=== PATIENT | female | born 1970 | race Caucasian/White ===

== ENCOUNTER 2022-06-18 14:10 | Outpatient (CLI) | payer BC, SELFPAY ==
--- NOTE | 2022-06-18 14:00 | CRLHL7_ITS ---
For Patients: As a result of the Century Cures Act, medical imaging exams and procedure reports are released immediately into your electronic medical record. You may view this report before your referring provider. If you have questions, please contact your health care provider. INDICATION: Menorrhagia. TECHNIQUE: Transabdominal and transvaginal pelvic ultrasound. FINDINGS: The uterus is enlarged, measuring 14.2 x 7.6 x 11.6 cm. The endometrial stripe is not at all well seen. There are least 3 discrete myometrial masses. There is an upper anterior intramural mass measuring 4.0 x 3.1 x 5.7 cm likely a fibroid. There is a smaller posterior upper fundal intramural mass measuring 3.5 x 3.0 x 2.8 cm likely an additional fibroid. There is a large mass within the lower uterine segment measuring 7.7 x 5.2 x 7.8 cm. Some of these masses are partly calcified. Lesion all reflect fibroids. Additional uterine fibroids are likely as well but not measured. Nonvisualization of the left ovary. The right ovary measures 3.0 x 2.2 x 1.9 cm. No free pelvic fluid. IMPRESSION: 1. Multiple uterine masses likely fibroids some of which are calcified. 2. Nonvisualization of the endometrial stripe. 3. Normal right ovary. Nonvisualization of the left ovary. Dictated by Kaiser Jansen MD @ 06/18/2022 5:42:51 PM (Electronically Signed)
== END 2022-06-18 14:11 | disposition home or self-care (01) ==
LOC: US 14:11
PROVIDERS: PCP Family Medicine; Visit Provider Obstetrics & Gynecology
DX: N92.0 Excessive and frequent menstruation with regular cycle (principal); R19.09 Other intra-abdominal and pelvic swelling, mass and lump
CPT/HCPCS: 76830; 76856; 83001

== ENCOUNTER 2025-02-23 19:21 | Emergency (ER) | payer BC, SELFPAY ==
--- OUTSIDE RECORDS SUMMARY | 2025-02-23 19:23 | XMS_ITS | Clinical Summary ---
Author Organization [facility] Address [address] [place] [id number] Care Team Providers Care Energy Economist Name Role Phone Vero Hurst YVONNE Primary Care Provider [phone] Allergies No known active allergies Medications tretinoin 0.05 % 0.05 % cream APPLY CREAM TOPICALLY AT BEDTIME 01/17/20 19 Active loratadine (CLARITIN) 10 mg tablet Take 1 Tablet (10 mg) by mouth once daily. 0 09/06/19 21 Active fluticasone (50 mcg per actuation) nasal solution (FLONASE)Indica tions:Allergic rhinitis due to other allergic trigger, unspecified seasonality Inhale 1 [place] in both nostrils two times daily. 16 g 11 12/14/19 24 Active medication order composer Pure encapsulations Magnesium Citrate - 150 mg- 1 daily Double Wood Magnesium Glycinate 400 mg - 1 daily Up and Up Vitamin D 5,000 - 1 every other day 02/15/20 24 Active hydrOXYzine HCL (ATARAX) 25 mg tabletIndicatio ns:Insomnia, unspecified type Take 1 Tablet (25 mg) by mouth at bedtime. Try not to take daily and only as needed. 30 Tablet 1 04/13/19 25 Active estradiol 0.025 mg/24 hr SEMIWEEKLY patchIndication s:Hot flashes due to menopause,Menop ause syndrome,Low libido Apply 1 Patch on dry, clean, hairless skin every Wednesday and . 24 Patch 3 04/13/19 25 Active benzonatate (TESSALON) 100 mg capsuleIndicati ons:Viral upper respiratory infection Take 1 Capsule (100 mg) by mouth 3 times daily if needed for Cough. 30 Capsule 05/30/19 25 Active progesterone micronized (PROMETRIUM) 100 mg capsuleIndicati ons:Hot flashes due to menopause,Menop ause syndrome Take 1 Capsule (100 mg) by mouth at bedtime. This product contains peanut oil. Please verify patient allergies. 90 Capsule 3 11/23/19 25 Active Active Problems Problem Noted Date Diagnosed Date Pap smear for cervical cancer screening 04/22/19 23 Overview (05/18/2022): 04/2022 NIL/HPV negative. Plan: Pap/HPV due 04/2027. Mass of right breast 08/11/2021 Overview (08/11/2021): 3. Results of this study were discussed with the patient. She is advised to continue to monitor with physical exam these palpable findings in the breasts. Would recommend a follow-up ultrasound of the RIGHT breast in three months. If the palpable lump should significantly change in the interim we could obtain a follow-up ultrasound sooner. 08/11/21 Uterine fibroid 09/06/2020 Vitamin D deficiency 10/26/2016 Acne vulgaris 09/05/2015 Hypermetropia 10/20/2013 Allergic rhinitis 01/01/2010 Resolved Problems Problem Noted Date Diagnosed Date Resolved Date Plantar wart of left foot 09/03/2009 Normal delivery 03/01/2006 03/01/2006 Overview (03/01/2006): delivered in [facility] INSERTION OF IUD 09/02/2004 01/16/2011 Overview (12/20/2009): Inactive ICD-9 code replaced with correct active ICD-9. Display name retained. Immunizations Immunization Administration Dates Next Due COVID-19 VACCINE SPIKEVAX (M ODERNA 50MCG/0.5ML) 12YO+ PFS 12/14/2023 COVID-19 vaccine (Moderna 100mcg/0.5mL) PF, MDV 07/14/2020,06/16/2020 COVID-19 vaccine (Pfizer-DataFox NTLIFEMODELER 30mcg/0.3mL) 12YO+ BIVALENT PF, MDV 04/27/2022 INFLUENZA, IIV3 PF (AGE >= 6 MO) 12/14/2023 Influenza, IIV3 (Age 6-35 mos) 01/16/2011 Influenza, IIV3 (Age >=3 years) 04/15/19 18,12/29/2012,03/18/2012,2010,01/01/2010 Influenza, IIV4 04/27/2022,01/02/2019 Td, Preservative Free (age > = 7 Years) 10/22/2016 Tdap 03/01/2006 Family History Medical History Relation Name Comments Good Health Daughter 2 lakia Unknown Father jerrod Cancer Maternal Aunt stomach cancer Cancer Maternal Uncle stomach cance r Good Health Mother Rita Other Mother Rita migraines Thyroid Disease Mother Rita Cancer-breast Other poss aunt Good Health Sister 2 Iraida Relation Name Status Comments Brother (Age 22) accident Daughter 1 Alive Daughter 2 lakia Father jerrod Other unknown Maternal Aunt Maternal Grandfather Maternal Grandmother Maternal Uncle Mother Rita Alive Other Paternal Grandfather Paternal Grandmother Sister 1 Alive Sister 2 Iraida Social History Tobacco Use Types Packs/Day Years Used Date Smoking Tobacco: Never Smokeless Tobacco: Never Tobacco Cessation:Counseling Given: Not Answered Alcohol Use Standard Drinks/Week Comments Yes 0 (1 standard drink = 0.6 oz pur e alcohol) occasional PHQ-2 Answer Date Recorded PHQ-2 TOTAL SCORE 6 04/06/2024 Social Connections Answer Date Recorded Frequency of Communication with Friends and Fami ly 0 08/07/2021 Financial Resource Strain Answer Date R ecorded Difficulty of Paying Living Expenses 3 08/07/2021 Difficulty of Paying Living Expenses Not on file 08/07/2021 Food Insecurity Answer Date Recorded Worried About Running Out of Food in the Last Ye ar 1 08/07/2021 Transportation Needs Answer Date Record ed Lack of Transportation (Medical) 1 08/07/2021 Housing Stability Answer Date Recorded Unable to Pay for Housing in the Last Year 1 08/07/2021 Interpersonal Safety Answer Date Record ed Are you being hit, kicked, p ushed or yelled at (see row info)? 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 Not on file Not on file Not on file Obstetrics History Para Term AB IAB SAB Ectopic Multiple Livin g Live Births 2 1 0 1 1 0 1 0 0 1 1 Date Outcome GA Total Labor Labor/2nd/3rd Weight Sex Type Anes PTL Milvia A1 A5 Name Clin SAB SPONTAN EOUS 01/24 34w 0d 1.4 kg (3 lb 1.4 oz) F Vag Y Living Last Filed Vital Signs Vital Sign Reading Time Taken Comments Blood Pressure 123/75 05/29/2024 10:33 AM CDT Pulse 81 05/29/2024 10:33 AM CDT Temperature 36.8 C (98.2 F) 05/29/2024 10:33 AM CDT Respiratory Rate 18 05/29/2024 10:33 AM CDT Oxygen Saturation 97% 05/29/2024 10:33 AM CDT Inhaled Oxygen Concentration - - Weight 55.3 kg (122 lb) 05/29/2024 10:33 AM CDT Height 165.1 cm (5' 5) 05/29/2024 10:33 AM CDT Body Mass Index 20.3 05/29/2024 10:33 AM CDT Plan of Treatment Health Maintenance Due Date Last Done Comments Hepatitis B series for 19+ ( 1 of 3 - 19+ 3-dose series) 07/31/1990 Pneumococcal series for age 50+ (1 of 1 - PCV) 07/31/2021 Zoster (shingles) series for age 50+ (1 of 2) 07/31/2021 COVID-19 vaccine series ( - 2024- season) 2024 12/14/2023, 04/27/2022, 03/26/2021, Additional history exists Influenza Vaccine (#1) 2024 , 04/27/2022, 01/02/2019, Additional history exists Mammogram for age 45-75 12/13/2024 12/14/19 24, 04/28/2022, 08/11/2021, Additional history exists BMI (ht and wt on same day) for age 18+ 02/14/2025 02/15/2024, 12/14/2023, 04/27/2022, Additional history exists Depression screening for age 12+ 04/06/2025 04/06/2024, 04/05/2024, 12/14/2023, Additional history exists Tetanus booster 10/22/2026 10/22/2016, 03/01/2006 Pap test for age 21-65 04/27/2027 , 04/27/2022, 01/02/2019, Additional history exists Fecal testing sDNA-FIT ([place] guard) for age 45-75 11/28/2027 11/27/2024, 10/07/2021, 10/07/2021 Lipids for age 45-75 12/13/2028 12/14/2023, 04/27/2022, 09/05/2020, Additional history exists RSV vaccine for adults or (1 - 1-dose 75+ series) 07/31/2046 HIV for age 15-65 Completed 04/27/2022 Hepatitis C screening for ag e 18-79 Completed 04/27/2022 Procedures Procedure Name Priority Date/Time Associated Diagnosis Comments SDNA-FIT EXTERNAL (COLOGUARD) Routine 11/27/2024 1:00 PM CDT Screening for colorectal cancer LIPID PANEL W REFLEX MEASURED LDL Routine 12/14/2023 1:10 PM CDT Hyperlipidemia, unspecified hyperlipidemia type XR MAMMO RADHA BILAT SCREEN IMPLANT Routine 12/14/2023 7:56 AM CDT Encounter for screening mammogram for malignant neoplasm of breast HPV HIGH RISK Routine 04/27/2022 10:55 AM BIRDCAGE ASSEMBLER Pap smear for cervical cancer screening LC HIV-1/O/2, 4TH GENERATION Routine 04/27/2022 10:25 AM BIRDCAGE ASSEMBLER Screening for HIV (human immunodeficiency virus) LC HCV ANTIBODY RFX TO QUANT PCR Routine 04/27/2022 10:25 AM BIRDCAGE ASSEMBLER Encounter for hepatitis C screening test for low risk patient from Last 3 Months or Most Recently Relevant to Health Maintenance Results * SDNA-FIT EXTERNAL (COLOGUARD) [[id number]] (11/27/2024 1:00 PM CDT) NONINV COLON CA DNA+OCC BLD SCRN STL-IMP Negative Negative 12/01/2024 11:53 AM CDT [facility] (CLIA #:[id number]) Comment: The Cologuard (TM) test was performed on this specimen. NEGATIVE TEST RESULT. A negative Cologuard result indicates a low likelihood that a colorectal cancer (CRC) or advanced adenoma (adenomatous polyps with more advanced pre-malignant features) is present. The chance that a person with a negative Cologuard test has a colorectal cancer is less than 1 in 1500 (negative predictive value >99.9%) or has an advanced adenoma is less than 5.3% (negative predictive value 94.7%). These data are based on a prospective cross-sectional study of 10,000 individuals at average risk for colorectal cancer who were screened with both Cologuard and colonoscopy. (Nereyda T. et al, N Engl J Med 2014;370(14):1286- 1297) The normal value (reference range) for this assay is negative. COLOGUARD RE-SCREENING RECOMMENDATION: Periodic colorectal cancer screening is an important part of preventive healthcare for asymptomatic individuals at average risk for colorectal cancer. Following a negative Cologuard result, the [place] Cancer Society and U.S. Multi-Society Task Force screening guidelines recommend a Cologuard re-screening interval of 3 years. References: [place] [employer] Guideline for Colorectal Cancer Screening: https://www.cancer.org/cancer/bbijn-wjifzp-ewphyy/jeizhrkcz-wgxqtuhvd-kajdhfj/ac s-rec ommendations.html.; Yeison OSBORN, Mark WADDELL, Hilton CURTIS, Colorectal Cancer Screening: Recommendations for Physicians and Patients from the U.S. Multi-Society Task Force on Colorectal Cancer Screening , Am J Gastroenterology 2017; 112:9486-8527. TEST DESCRIPTION: Composite algorithmic analysis of stool DNA-biomarkers with hemoglobin immunoassay. Quantitative values of individual biomarkers are not reportable and are not associated with individual biomarker result reference ranges. Cologuard is intended for colorectal cancer screening of adults of either sex, 45 years or older, who are at average-risk for colorectal cancer (CRC). Cologuard has been approved for use by the U.S. FDA. The performance of Cologuard was established in a cross sectional study of average-risk adults aged 50-84. Cologuard performance in patients ages 45 to 49 years was estimated by sub-group analysis of near-age groups. Colonoscopies performed for a positive result may find as the most clinically significant lesion: colorectal cancer [4.0%], advanced adenoma (including sessile serrated polyps greater than or equal to 1cm diameter) [20%] or non- advanced adenoma [31%]; or no colorectal neoplasia [45%]. These estimates are derived from a prospective cross-sectional screening study of 10,000 individuals at average risk for colorectal cancer who were screened with both Cologuard and colonoscopy. (Nereyda Colvin et al, N Engl J Med 2014;370(14):7939-0400.) Cologuard may produce a false negative or false positive result (no colorectal cancer or precancerous polyp present at colonoscopy follow up). A negative Cologuard test result does not guarantee the absence of CRC or advanced adenoma (pre-cancer). The current Cologuard screening interval is every 3 years. ([place] Cancer Society and U.S. Multi-Society Task Force). Cologuard performance data in a 10,000 patient pivotal study using colonoscopy as the reference method can be accessed at the following location: www.[employer]HERMEL DELOR/results. Additional description of the Cologuard test process, warnings and precautions can be found at www.[email or web address]. Stool specimen (specimen) (Rectum) 11/27/2024 1:00 PM CDT 11/28/2024 10:22 AM CDT Vero Hurst NP URINE Final Result [facility] (CLIA #:[id number]) [address] [place] [address], * (ABNORMAL) LIPID PANEL W REFLEX MEASURED LDL (12/14/2023 1:10 PM CDT) CHOLESTEROL, TOTAL 221(H) <200 mg/dL [facility] HDL CHOLESTEROL 60 > OR = 50 mg/dL [facility] TRIGLYCERIDES 187(H) <150 mg/dL [facility] LDL-CHOLESTEROL 129(H) mg/dL (calc) [facility] Comment: Reference range: <100 Desirable range <100 mg/dL for primary prevention; <70 mg/dL for patients with CHD or diabetic patients with > or = 2 CHD risk factors. LDL-C is now calculated using the Johnny calculation, which is a validated novel method providing better accuracy than the Friedewald equation in the estimation of LDL-C. Venkat QUIROZ et al. CORA. 2013;310(19): 0526-0302 (http://education.[employer]/faq/FVN665) CHOL/HDLC RATIO 3.7 <5.0 (calc) [facility] NON HDL CHOLESTEROL 161(H) <130 mg/dL (calc) [facility] Comment: For patients with diabetes plus 1 major ASCVD risk factor, treating to a non-HDL-C goal of <100 mg/dL (LDL-C of <70 mg/dL) is considered a therapeutic option. Blood BLOOD SPECIMEN / Unknown 12/14/2023 1:10 PM CDT 12/14/2023 1:11 PM CDT Narrative [facility] - 12/15/2023 11:33 AM CDT FASTING:NO FASTING: NO Vero Hurst NP CHEMISTRY Final Result [facility] [address] [place] [address], [place] [phone] [facility] [address] [place] [address] * XR MAMMO RADHA BILAT SCREEN IMPLANT (12/14/2023 7:56 AM CDT) Anatomical Region Laterality Modality BREASTS, Breast Left, Breast Right Bilateral Mammography Impressions 12/14/2023 12:16 PM CDT There is no radiographic evidence for malignancy. Recommend annual mammograms. MAMMOGRAM ASSESSMENT: ACR 2 Benign PATIENTS: You will also receive a letter with your examination results in an easy to read format. If you have questions about your results, please contact your referring provider. Narrative 12/14/2023 12:16 PM CDT For Patients: As a result of the Century Cures Act, medical imaging exams and procedure reports are released immediately into your electronic medical record. You may view this report before your referring provider. If you have questions, please contact your health care provider. XR MAMMO RADHA BILAT SCREEN IMPLANT [[id number]] CLINICAL HISTORY: This is an asymptomatic 53 y.o. patient. INDICATION FOR EXAM: Mammogram Screening. TECHNIQUE: CC & MLO views were obtained. Implant displacement views were obtained. This study was evaluated with the assistance of Computer-Aided Detection. Breast Tomosynthesis was used in interpretation. COMPARISON FILMS: Yes 04/28/22 [facility] FINDINGS: The breasts are extremely dense, which lowers the sensitivity of mammography. No suspicious masses or microcalcifications. There are breast implant(s) present.. Verokatherine BlankenshipNatali NP MAMMO Final Result * HPV HIGH RISK (04/27/2022 10:55 AM BIRDCAGE ASSEMBLER) TYPE 16 Negative Negative 04/29/2022 4:51 PM BIRDCAGE ASSEMBLER [facility] LAB[facility] TYPE 18 Negative Negative 04/29/2022 4:51 PM BIRDCAGE ASSEMBLER [facility] TRAL LABORATORY OTHER HIGH RISK TYPES Negative Negative 04/29/2022 4:51 PM BIRDCAGE ASSEMBLER [facility] TRAL LAB[facility]ORY Other (Cervical) Non-Blood / Unknown 04/27/2022 10:55 AM BIRDCAGE ASSEMBLER 04/28/2022 9:18 AM BIRDCAGE ASSEMBLER Narrative [facility] - 04/29/2022 4:51 PM BIRDCAGE ASSEMBLER HPV types 16, 18, 31, 33, 35, 39, 45, 51, 52, 56, 58, 59, 66 and 68 DNA were undetectable or below the pre-set threshold. Methodology: Yoana Britta 4800 HPV Test Vero Hurst NP MICROBIOLOGY Final Result Performing Organization Address City/[facility]/ZIP Co de Phone Number [facility] [address] [place] [address], [place] * LC HCV ANTIBODY RFX TO QUANT PCR (04/27/2022 10:25 AM BIRDCAGE ASSEMBLER) [facility] HCV Ab 0.1 0.0 - 0.9 s/co ratio 04/29/2022 10:06 PM BIRDCAGE ASSEMBLER [facility] ESOTER[facility] TEST[facility] (CET) Blood BLOOD SPECIMEN / Unknown Venipuncture / Unknown 04/27/2022 10:25 AM BIRDCAGE ASSEMBLER 04/27/2022 10:26 AM [facility] ESOTERIC TESTING (CET) - 04/29/2022 10:06 PM BIRDCAGE ASSEMBLER Performed at: [address] [place] [id number] Oil Laboratory Analyst: Aime Hu MD, Phone: [phone] Vero Hurst NP LABORATORY Final Result Performing Organization Address [facility] Co de Phone Number [facility] ([facility]) [address] [place], [place] [id number], * HIV-1/O/2, 4TH GENERATION (04/27/2022 10:25 AM BIRDCAGE ASSEMBLER) [facility] HIV Scr 4th Gen Non Reactive Non Reactive 04/29/2022 10:06 PM [facility] (CET) Comment: HIV Negative HIV-1/HIV-2 antibodies and HIV-1 p24 antigen were NOT detected. There is no laboratory evidence of HIV infection. Blood BLOOD SPECIMEN / Unknown Venipuncture / Unknown 04/27/2022 10:25 AM BIRDCAGE ASSEMBLER 04/27/2022 10:26 AM BIRDCAGE ASSEMBLER [facility] FOR ESOTERIC TESTING (CET) - 04/29/2022 10:06 PM BIRDCAGE ASSEMBLER Performed at: - [facility] [address] [place], [place] [id number] Oil Laboratory Analyst: Aime Hu MD, Phone: [phone] Vero Hurst NP LABORATORY Final Result [facility] (CET) [facility] [place] [address], from Last 3 Months or Most Recently Relevant to Health Maintenance Insurance [employer] [facility] Care Teams Energy Economist Relationship Specialty Start Date End Date Vero Hurst NP [address] [place] [address] RICHARD Black [id number] PCP - General Family Practice 10/22/16
[2025-02-23 19:34] VITALS: BP 137/77; PULSE 77; RESP 16; TEMP 36.8; O2SAT 99; BMI 20.9
[2025-02-23] MEDS: TETRACAINE 0.5% OPHTH 2 DROP EYE-LEFT (19:55)
--- NOTE | 2025-02-23 20:26 | ED_ITS ---
HPI - General Adult General Chief complaint: Eye Problems Stated complaint: Foreign object in left eye Time Seen by Provider: 02/23/25 19:49 Source: patient and RN notes reviewed Mode of arrival: ambulatory Limitations: no limitations History of Present Illness HPI narrative: 54-year-old female presents to the emergency department for evaluation of foreign body sensation in the left eye. Present upon awakening this morning, presents to the ED 12+ hours later. No trauma or injury. Does not feel like her vision is impaired but feels like the eye is getting more red and she notes a little bit of redness on the left upper cheek as well. No fever. Has had URI symptoms for the past 3-4 days. Does not wear contacts. No headache, no neurological changes besides the feeling of foreign body sensation in the left eye, right side is unaffected. Not immunocompromised. Did not try any other interventions prior to arrival. No prior previous similar symptoms. No history of eye surgeries. ROS notable for the URI and left eye symptoms only, otherwise denies any other HEENT, generalized or respiratory changes. Home medications reviewed, no allergies. Nonsmoker. Related Data Previous Rx's ?Medication ?Instructions ?Recorded norethindrone acetate 5 mg tablet 5 mg PO QDAY 30 days #30 tabs 08/18/22 Allergies Allergy/AdvReac Type Severity Reaction Status Date / Time No Known Drug Allergies Allergy Verified 10/28/22 09:50 [facility] Social History Smoking Status: Never smoker Exam Const: Vital Signs, click to edit/add: Vital Signs - 24 hr 02/23/25 19:34 Temperature 98.3 F Pulse Rate [Pulse Oximeter] 77 Respiratory Rate 16 Blood Pressure [Ri ght Upper Arm] 137/77 Pulse Oximetry 99 Oxygen Delivery Me thod Room Air Documenting provider has reviewed patient's vital signs: yes Common normals: no apparent distress General appearance: cooperative and well kempt HENMT: Common normals: normocephalic, moist oral mucous membranes and oropharynx normal Head and scalp: normocephalic Other: Nose with some rhinorrhea but no significant nasal swelling or deformity. No facial swelling. No periorbital abnormalities. Eye: Common normals: PERRL and EOMs intact bilaterally Pupil: PERRL Other: Conjunctivae are slightly injected as are sclera on the left, right side is normal. Tetracaine and fluorescein exam is performed with no evidence of foreign body seen nor corneal abrasion. There is some slight swelling of the medial canthus, left side only. Patient did have improvement of symptoms with the tetracaine. Neck & C-Spine: General: normal visual inspection Resp: Common normals: normal respiratory effort Effort & inspection: able to speak in complete sentences Psych: Appearance: well kempt Attitude: engaged Activity/motor behavior: appropriate eye contact Mood and affect: euthymic mood Insight: insight good Judgement: judgment good Skin: Common normals: no rashes or lesions noted General skin exam: no rashes or lesions noted Course Course ED Course: Normal visual acuity noted. Counseled patient on findings. I do not see any evidence of of corneal abrasion better symptom sure are suspicious for 1. I certainly do not see any foreign body so that is reassuring. I think she likely has some conjunctivitis and infection of the leg remote duct as part of her sinus infection. The sinus infection is likely viral but I always get concern when there is this much unilateral ocular involvement that there could be a bacterial component there as well. Counseled patient that we we should err on the side of caution and treat the eye symptoms with antibiotic drops. Gentamicin applied here in the ED and patient set with remainder prescription, prescription forms completed. She will put 1 drop in the left eye 3 times daily for the next 5 days. I do not think that the sinus infection needs oral antibiotics, she has only been symptomatic for 3-4 days, no fevers, 9 no compromise. Rationale is reviewed with patient. If symptoms are not markedly improving in 3-4 days, would recommend re-evaluation at [facility] as they do have some more sophisticated equipment and I have here in the ED overnight. Alarm symptoms reviewed that would warrant ED re-evaluation. Do not drive if she notices vision impairment. Okay to use Tylenol and/or ibuprofen as needed. If sinus symptoms are not improving in 10 days, recommend outpatient office visit. She verbalizes understanding and agreement. Vital Signs Vital signs: Initial Vital Signs Temperature 98.3 F 02/23/25 19:34 Temperature Source Temporal Artery Scan 02/23/25 19:34 Pulse Rate 77 02/23/25 19:34 Respiratory Rate 16 02/23/25 19:34 Blood Pressure 137/77 02/23/25 19:34 Blood Pressure Mean 97 02/23/25 19:34 Blood Pressure Position Sitting 02/23/25 19:34 Pulse Oximetry 99 02/23/25 19:34 Oxygen Delivery Method Room Air 02/23/25 19:34 Vital Signs Temperature 98.3 F 02/23/25 19:34 Pulse Rate 77 02/23/25 19:34 Respiratory Rate 16 02/23/25 19:34 Blood Pressure 137/77 02/23/25 19:34 Pulse Oximetry 99 02/23/25 19:34 Oxygen Delivery Method Room Air 02/23/25 19:34 Temperature 98.3 F 02/23/25 19:34 Pulse Rate 77 02/23/25 19:34 Respiratory Rate 16 02/23/25 19:34 Blood Pressure 137/77 02/23/25 19:34 Pulse Oximetry 99 02/23/25 19:34 Oxygen Delivery Method Room Air 02/23/25 19:34 Discharge Plan Discharge Clinical Impression: Infection of left lacrimal duct Patient Disposition: Home, Self-Care Condition: Stable Instructions: Conjunctivitis (ED) Additional Instructions: As we discussed, you seem to have inflammation and infection of the lining of the eyelid and the tear duct. These often start as viral sinus infections but can spread towards the eye. I do not see any signs of a foreign body in the eye or any corneal abrasion or cut to the outer surface of the eyeball. I have started you on an antibiotic drop to help treat this inflammation. Use 1 drop in the left eye 3 times per day. You do not need to wake up in the middle of the night to use it, but rather about every 4 hours while you are awake. Use this for the next 5 days, it should treat the infection well. Even though the infection seems to be spreading from your sinuses, I do not think that those require oral antibiotics at this time. Most of the time the start off is viruses and do heal on their own. If you are still experiencing symptoms in 10 days, I would recommend re-evaluation in the clinic. It is okay to use Tylenol and or ibuprofen as needed for discomfort. Please do not drive if your vision seems impaired. If you still have unexpected I symptoms, please make an appointment with [facility] next week. They can do more advanced testing than I am able to perform here in the emergency department over the weekend. Activity Level: Activity as Tolerated Discharge Diet: Regular Prescriptions: No Action norethindrone acetate 5 mg tablet 5 mg PO QDAY 30 Days Qty: 30 4RF Follow Up/Referrals: Vero Hurst CNP [Primary Care Provider, Family Practice] Stand Alone Forms: MyHealth Info Instructions
[2025-02-23 20:43] VITALS: BP 128/75; PULSE 74; RESP 16; TEMP 36.8; O2SAT 99
[2025-02-23 20:47] VITALS: BP 128/75; PULSE 74; RESP 16; TEMP 36.8
== END 2025-02-23 20:48 | disposition home or self-care (01) ==
LOC: ED 20:23
PROVIDERS: Emergency Provider Family Medicine; PCP Family Medicine
DX: H04.332 Acute lacrimal canaliculitis of left lacrimal passage (principal)
CPT/HCPCS: 99283